=== PATIENT | female | born 1985 | race Caucasian/White ===

== ENCOUNTER 2017-09-03 17:33 | Inpatient (IN) ==
[2017-09-03 18:33] LABS: Basophils # 0.1 10*3/uL (0.0-0.2); Basophils % 0.4 % (0.0-0.8); Eosinophils # 0.1 10*3/uL (0.0-0.87); Hematocrit 33.4 VOL% (35.7-47.0); Hemoglobin 11.4 GM/DL (12.0-16.0); Immature Granulocytes % 0.7 %; Immature Granulocytes Absolute 0.08 #; Lymphocytes % 17.5 % (21.3-54.2); Mean Corpuscular HGB Conc 34.1 GM/DL (32-36); Mean Corpuscular Hemoglobin 30 PG (27-34); Mean Corpuscular Volume 89.1 FL (87-102); Mean Platelet Volume 10.3 FL (9.6-12.0); Monocytes # 0.7 10*3/uL (0.11-0.8); Monocytes % 5.9 % (1.7-12.7); Neutrophils # 8.7 10*3/uL (1.4-7.4); Neutrophils % 74.5 % (38.7-73.9); Platelet Count 284 T/CUMM (130-400); Red Blood Count 3.75 MC/CUMM (3.8-5.5); Red Cell Distribution Width 13.4 % (9.3-17.3); White Blood Count 11.7 T/CUMM (4-12)
[2017-09-03 18:46] LABS: INR 0.9; PT Patient Result 9.8 SECS
[2017-09-03 19:06] LABS: Albumin 2.8 G/DL (3.4-5.0); Bilirubin,Total 0.4 MG/DL (0.2-1.0); Calcium 8.4 MG/DL (8.5-10.1); Osmolality,Calculated 274.8 MOS/KG (273-304); Potassium 3.5 MMOL/L (3.5-5.1); Total Protein 6.2 G/DL (6.4-8.3)
[2017-09-04] MEDS: LABETALOL 100 MG TABLET PO SCH ×3 (00:49→19:14)
[2017-09-04] MEDS: METHYLDOPA 250 MG TABLET PO SCH ×3 (00:50→19:14)
[2017-09-04] MEDS: LACTATED RINGERS 1,000 ML IV SCH (07:35)
[2017-09-04] MEDS ORDERED: OXYTOCIN/LR 20 UNIT/1,000 ML BAG IV ONE ×2 (07:39→09:48)
[2017-09-04] MEDS ORDERED: CITRIC ACID/SODIUM CITRATE 30 ML UDCUP PO ONE (08:00)
[2017-09-04] MEDS ORDERED: FAMOTIDINE 20 MG/2 ML VIAL IV ONE (08:00)
[2017-09-04 09:36] LABS: Apearance,Urine CLEAR (Clear); Bacteria,Urine Occasional /HPF (Few); Bilirubin,Urine Negative (Negative); Blood, Urine Negative (Negative); Glucose,Urine (UA) Negative (Negative); Ketones,Urine Negative (Negative); Mucus,Urine Occasional /LPF (Occasional); Nitrite,Urine Negative (Negative); Protein,Urine Negative; RBC,Urine 5 /HPF (0-4); Squamous Epithelial Cell,Urine Occasional /HPF (0-10); Urine Color Yellow (Yellow); Urine Specific Gravity 1.011 (1.001-1.035); Urine Urobilinogen < 2.0 EU/DL (0.2-1.0); WBC,Urine 4 /HPF (0-6)
[2017-09-04] MEDS ORDERED: ACETAMINOPHEN 325 MG TABLET PO PRN (09:48)
[2017-09-04] MEDS ORDERED: ONDANSETRON 4 MG/2 ML VIAL IV PRN (09:48)
[2017-09-04] MEDS ORDERED: SIMETHICONE CHEW 80 MG TABLET PO PRN (09:48)
[2017-09-04] MEDS ORDERED: RHO(D) IMMUNE GLOBULIN 300 MCG SYRINGE IM ONE (09:48)
[2017-09-04] MEDS ORDERED: MORPHINE 10 MG/10 ML VIAL ONE (10:36)
[2017-09-04] MEDS ORDERED: fentaNYL 100 MCG/2 ML VIAL ONE (10:36)
[2017-09-04] MEDS ORDERED: LACTATED RINGERS 1,000 ML IV ONE (13:08)
[2017-09-04] MEDS ORDERED: ONDANSETRON 4 MG/2 ML VIAL ONE (13:08)
[2017-09-04] MEDS ORDERED: LIDOCAINE MPF 2% /EPI 20 ML VIAL ONE (13:08)
[2017-09-04] MEDS ORDERED: DEXAMETHASONE 10 MG/1 ML VIAL ONE (13:08)
[2017-09-04] MEDS ORDERED: PROMETHAZINE 25 MG/1 ML VIAL ONE (13:08)
[2017-09-04] MEDS ORDERED: diphenhydrAMINE 50 MG/1 ML VIAL IV PRN (14:12)
[2017-09-04] MEDS: KETOROLAC 30 MG/1 ML VIAL IV PRN (14:45)
[2017-09-04] MEDS: CLINDAMYCIN INJ 900 MG in PREMIX 1 EACH IV ONE (16:41)
[2017-09-04] MEDS: CLINDAMYCIN INJ 900 MG in PREMIX 1 EACH IV SCH (17:04)
[2017-09-04] MEDS ORDERED: PROMETHAZINE 25 MG/1 ML VIAL IM PRN (17:26)
[2017-09-04] MEDS ORDERED: methylPREDNISolone SOD SUC 125 MG/2 ML VIAL IV STA (18:34)
[2017-09-04] MEDS ORDERED: SCOPOLAMINE 1.5 MG PATCH TRANSDERM STA (18:34)
[2017-09-04] MEDS ORDERED: LABETALOL 20 MG/4 ML SYRINGE IV ONE (20:31)
[2017-09-04] MEDS: DOCUSATE SODIUM 100 MG CAPSULE PO SCH (21:04)
[2017-09-04] MEDS ORDERED: LABETALOL 20 MG/4 ML SYRINGE IV PRN (21:33)
[2017-09-04] MEDS ORDERED: hydrALAZINE 20 MG/1 ML VIAL IV PRN (21:39)
[2017-09-04] MEDS ORDERED: MAGNESIUM SULF DRIP 40 GM/1,000 ML ML IV SCH (23:00)
[2017-09-05] MEDS: CLINDAMYCIN INJ 900 MG in PREMIX 1 EACH IV SCH (01:16)
[2017-09-05] MEDS: KETOROLAC 30 MG/1 ML VIAL IV PRN (01:16)
[2017-09-05] MEDS: LACTATED RINGERS 1,000 ML IV SCH ×3 (01:16→02:31)
[2017-09-05] MEDS: NIFEdipine 10 MG CAPSULE PO SCH ×3 (01:24→08:44)
[2017-09-05] MEDS: CLINDAMYCIN INJ 900 MG in PREMIX 1 EACH IV ONE (01:32)
[2017-09-05 05:45] LABS: Basophils % 0.2 % (0.0-0.8); Hematocrit 30.5 VOL% (35.7-47.0); Hemoglobin 10.3 GM/DL (12.0-16.0); Immature Granulocytes % 0.8 %; Immature Granulocytes Absolute 0.14 #; Lymphocytes # 1.3 10*3/uL (1.4-4.0); Lymphocytes % 7.5 % (21.3-54.2); Mean Corpuscular HGB Conc 33.8 GM/DL (32-36); Mean Corpuscular Hemoglobin 30 PG (27-34); Mean Corpuscular Volume 89.7 FL (87-102); Mean Platelet Volume 10.5 FL (9.6-12.0); Monocytes # 1.3 10*3/uL (0.11-0.8); Monocytes % 7.6 % (1.7-12.7); Neutrophils # 14.7 10*3/uL (1.4-7.4); Neutrophils % 83.9 % (38.7-73.9); Platelet Count 303 T/CUMM (130-400); Red Cell Distribution Width 13.2 % (9.3-17.3); White Blood Count 17.6 T/CUMM (4-12)
[2017-09-05] MEDS: LABETALOL 100 MG TABLET PO SCH (07:23)
[2017-09-05] MEDS: METHYLDOPA 250 MG TABLET PO SCH ×2 (07:23→08:45)
[2017-09-05] MEDS: MULTIVITAMIN (PRENATAL) TABLET PO SCH (09:56)
[2017-09-05] MEDS: DOCUSATE SODIUM 100 MG CAPSULE PO SCH ×2 (09:56→21:40)
[2017-09-05] MEDS: oxyCODONE/ACETAMINOPHEN 5-325 MG TABLET PO PRN ×2 (14:18→19:56)
[2017-09-05] MEDS: METHYLDOPA 500 MG TABLET PO SCH ×2 (14:40→21:40)
[2017-09-05] MEDS: IBUPROFEN 800 MG TABLET PO PRN (19:55)
[2017-09-06] MEDS: IBUPROFEN 800 MG TABLET PO PRN ×2 (05:18→12:44)
[2017-09-06] MEDS: oxyCODONE/ACETAMINOPHEN 5-325 MG TABLET PO PRN ×3 (05:19→19:45)
[2017-09-06] MEDS: METHYLDOPA 500 MG TABLET PO SCH ×4 (08:43→20:35)
[2017-09-06] MEDS: DOCUSATE SODIUM 100 MG CAPSULE PO SCH ×2 (08:43→22:27)
[2017-09-06] MEDS: MAGNESIUM HYDROXIDE SUSP 30 ML UDCUP PO PRN ×2 (08:44→22:27)
[2017-09-06] MEDS: MULTIVITAMIN (PRENATAL) TABLET PO SCH (08:46)
[2017-09-07] MEDS: oxyCODONE/ACETAMINOPHEN 5-325 MG TABLET PO PRN ×3 (02:01→16:58)
[2017-09-07] MEDS: IBUPROFEN 800 MG TABLET PO PRN (02:01)
[2017-09-07 07:47] VITALS: BP 132/82
[2017-09-07] MEDS: DOCUSATE SODIUM 100 MG CAPSULE PO SCH (09:01)
[2017-09-07] MEDS: MULTIVITAMIN (PRENATAL) TABLET PO SCH (09:01)
[2017-09-07] MEDS: METHYLDOPA 500 MG TABLET PO SCH ×2 (09:01→16:30)
== END 2017-09-07 18:00 | disposition home or self-care (01) | DRG 765 ==
LOC: N.LDOUT 17:33 → N.LD 17:35 → N.OB 09-04 16:12
PROVIDERS: ADMIT Obstetrics & Gynecology; ATTEND Obstetrics & Gynecology

== ENCOUNTER 2017-09-10 18:06 | Observation (INO) ==
[2017-09-10] MEDS ORDERED: SCOPOLAMINE 1.5 MG PATCH TRANSDERM ONE (18:38)
[2017-09-10] MEDS ORDERED: LABETALOL 20 MG/4 ML SYRINGE IV ONE (18:39)
[2017-09-10] MEDS ORDERED: PROMETHAZINE 25 MG/1 ML VIAL IM PRN (18:40)
[2017-09-10] MEDS ORDERED: ONDANSETRON 4 MG/2 ML VIAL IV PRN (18:41)
[2017-09-10 18:54] LABS: Basophils # 0.1 10*3/uL (0.0-0.2); Basophils % 0.4 % (0.0-0.8); Eosinophils # 0.4 10*3/uL (0.0-0.87); Hematocrit 31.2 VOL% (35.7-47.0); Hemoglobin 10.6 GM/DL (12.0-16.0); Immature Granulocytes % 0.6 %; Immature Granulocytes Absolute 0.07 #; Lymphocytes # 1.5 10*3/uL (1.4-4.0); Lymphocytes % 12.9 % (21.3-54.2); Mean Corpuscular Hemoglobin 30 PG (27-34); Mean Corpuscular Volume 89.1 FL (87-102); Mean Platelet Volume 9.3 FL (9.6-12.0); Monocytes # 0.9 10*3/uL (0.11-0.8); Monocytes % 7.7 % (1.7-12.7); Neutrophils # 8.7 10*3/uL (1.4-7.4); Neutrophils % 75.4 % (38.7-73.9); Platelet Count 449 T/CUMM (130-400); White Blood Count 11.6 T/CUMM (4-12)
[2017-09-10] MEDS ORDERED: MEPERIDINE 50 MG/1 ML VIAL IV PRN (18:59)
[2017-09-10] MEDS ORDERED: LACTATED RINGERS 1,000 ML IV SCH (19:00)
[2017-09-10 19:19] LABS: Albumin 2.8 G/DL (3.4-5.0); Bilirubin,Total 0.7 MG/DL (0.2-1.0); Calcium 8.6 MG/DL (8.5-10.1); Osmolality,Calculated 274.8 MOS/KG (273-304); Potassium 4.1 MMOL/L (3.5-5.1)
[2017-09-10] MEDS: METHYLDOPA 500 MG TABLET PO SCH (20:44)
[2017-09-10] MEDS: LABETALOL 200 MG TABLET PO SCH (20:45)
[2017-09-11 07:01] LABS: Basophils % 0.3 % (0.0-0.8); Eosinophils # 0.3 10*3/uL (0.0-0.87); Eosinophils % 3.2 % (0.00-10.9); Hemoglobin 10.3 GM/DL (12.0-16.0); Immature Granulocytes % 0.7 %; Immature Granulocytes Absolute 0.08 #; Lymphocytes # 2.2 10*3/uL (1.4-4.0); Lymphocytes % 20.1 % (21.3-54.2); Mean Corpuscular HGB Conc 34.3 GM/DL (32-36); Mean Corpuscular Hemoglobin 30 PG (27-34); Mean Corpuscular Volume 88.5 FL (87-102); Mean Platelet Volume 9.5 FL (9.6-12.0); Monocytes # 0.8 10*3/uL (0.11-0.8); Monocytes % 7.6 % (1.7-12.7); Neutrophils # 7.3 10*3/uL (1.4-7.4); Neutrophils % 68.1 % (38.7-73.9); Platelet Count 487 T/CUMM (130-400); Red Blood Count 3.39 MC/CUMM (3.8-5.5); Red Cell Distribution Width 13.2 % (9.3-17.3); White Blood Count 10.8 T/CUMM (4-12)
[2017-09-11 08:45] LABS: Albumin 2.5 G/DL (3.4-5.0); Bilirubin,Total 0.4 MG/DL (0.2-1.0); Calcium 8.2 MG/DL (8.5-10.1); Osmolality,Calculated 277.4 MOS/KG (273-304); Potassium 4.3 MMOL/L (3.5-5.1); Total Protein 5.4 G/DL (6.4-8.3)
[2017-09-11] MEDS: METHYLDOPA 500 MG TABLET PO SCH ×2 (09:13→16:11)
[2017-09-11] MEDS: LABETALOL 200 MG TABLET PO SCH ×2 (09:14→22:37)
[2017-09-11] MEDS ORDERED: ACETAMINOPHEN 325 MG TABLET PO PRN (19:39)
[2017-09-12] MEDS: METHYLDOPA 500 MG TABLET PO SCH ×2 (00:23→07:42)
[2017-09-12 07:36] VITALS: BP 158/99
[2017-09-12] MEDS: LABETALOL 200 MG TABLET PO SCH (07:42)
== END 2017-09-12 10:05 | disposition home or self-care (01) ==
LOC: N.OB
PROVIDERS: ADMIT Obstetrics & Gynecology; ATTEND Obstetrics & Gynecology